=== PATIENT | female | born 1985 | race Caucasian/White ===

== ENCOUNTER 2022-01-11 18:14 | Emergency (ER) | payer MEDICAID ==
[~2022-01-11] VITALS: Ht 165.1 cm; Wt 59.0 kg
[2022-01-11 18:33] VITALS: BP 120/69
--- NOTE | 2022-01-11 18:52 | NUR ---
RADIOLOGY AT BEDSIDE FOR R WRIST XRAY.
[2022-01-11] MEDS ORDERED: IBUP-1955 PO (19:35)
[2022-01-11] MEDS ORDERED: IBUPROFEN 600 MG TABLET PO ONE (20:00)
== END 2022-01-11 19:42 | disposition home or self-care (01) ==
LOC: ER 18:23
DX: M25.531 Pain in right wrist (principal); Z79.1 Long term (current) use of non-steroidal anti-inflammatories (NSAID); V49.9XXA Car occupant (driver) (passenger) injured in unspecified traffic accident, initial encounter; Y93.89 Activity, other specified; Y92.89 Other specified places as the place of occurrence of the external cause; Y99.8 Other external cause status
CPT/HCPCS: 73110